=== PATIENT | male | born 1990 | race American Indian/Alaskan Native ===

== ENCOUNTER 2017-03-21 12:02 | Emergency (ER) | payer SELFPAY ==
[2017-03-21 12:47] VITALS: BP 129/79
[2017-03-21] MEDS ORDERED: TORADOL IM ONE (15:47)
--- NOTE | 2017-03-21 15:48 | Emergency Department Report ---
ED ENT HPI - General Chief complaint: Sore Throat Stated complaint: ASTHMA/CHEST PAIN/BODY PAIN Time Seen by Provider: 03/21/17 15:13 Source: patient Mode of arrival: Ambulatory Limitations: No Limitations - History of Present Illness Initial comments: This is a 26-year-old male nontoxic, well nourished in appearance, no acute signs of distress the present to the ED complaining of sore throat, body aches, and sinus congestion x3 days. Patient describes sore throat as swallowing razor blades. Patient denies any fever, chills, chest pain, short of breath, headache, stiff neck, nausea, vomiting. Patient denies any facial swelling. Patient denies any allergies. History of of migraine headaches, asthma. MD complaint: sore throat -: Gradual, days(s) (3) Severity: mild Severity scale (0 -10): 7 Quality: other (swallowing razor blades) Consistency: constant Improves with: none Worsens with: swallowing Associated Symptoms: pain with swallowing. denies: fever, cough, gum swelling, toothache, sore throat, tinnitus, hearing loss, discharge from ear, rhinorrhea - Related Data Previous Rx's Medication Instructions Recorded Last Taken Type Ondansetron [Zofran] 4 mg PO Q6HR PRN #10 tablet 12/01/13 Unknown Rx ALBUTEROL NEB's [Proventil 0.083% 2.5 mg IH Q4-6H PRN #1 box 11/30/14 Unknown Rx NEBS] Azithromycin [Zithromax Z-TAWANNA] 250 mg PO DAILY #6 tablet 11/30/14 Unknown Rx Benzonatate [Tessalon Perles] 200 mg PO Q8HR PRN #15 capsule 11/30/14 Unknown Rx Fluticasone [Flonase] 1 spray NS QDAY #1 bottle 11/30/14 Unknown Rx Prednisone [Prednisone 10 mg 10 mg PO .TAPER #1 tab.ds.pk 11/30/14 Unknown Rx (6-Day Pack, 21 Tabs)] Cyclobenzaprine [Flexeril] 10 mg PO TID PRN #15 tablet 01/30/16 Unknown Rx Ibuprofen [Motrin 800 MG tab] 800 mg PO Q8HR PRN #30 tablet 01/30/16 Unknown Rx Amoxicillin/K Clav Tab [Augmentin 1 tab PO Q12HR #20 tab 03/21/17 Unknown Rx 875 mg] Ibuprofen [Motrin 600 MG tab] 600 mg PO Q8H PRN #30 tablet 03/21/17 Unknown Rx Allergies Allergy/AdvReac Type Severity Reaction Status Date / Time No Known Allergies Allergy Verified 11/30/14 09:33 ED Dental HPI - General Chief complaint: Sore Throat Stated complaint: ASTHMA/CHEST PAIN/BODY PAIN Time Seen by Provider: 03/21/17 15:13 Source: patient Mode of arrival: Ambulatory Limitations: No Limitations - Related Data Previous Rx's Medication Instructions Recorded Last Taken Type Ondansetron [Zofran] 4 mg PO Q6HR PRN #10 tablet 12/01/13 Unknown Rx ALBUTEROL NEB's [Proventil 0.083% 2.5 mg IH Q4-6H PRN #1 box 11/30/14 Unknown Rx NEBS] Azithromycin [Zithromax Z-TAWANNA] 250 mg PO DAILY #6 tablet 11/30/14 Unknown Rx Benzonatate [Tessalon Perles] 200 mg PO Q8HR PRN #15 capsule 11/30/14 Unknown Rx Fluticasone [Flonase] 1 spray NS QDAY #1 bottle 11/30/14 Unknown Rx Prednisone [Prednisone 10 mg 10 mg PO .TAPER #1 tab.ds.pk 11/30/14 Unknown Rx (6-Day Pack, 21 Tabs)] Cyclobenzaprine [Flexeril] 10 mg PO TID PRN #15 tablet 01/30/16 Unknown Rx Ibuprofen [Motrin 800 MG tab] 800 mg PO Q8HR PRN #30 tablet 01/30/16 Unknown Rx Amoxicillin/K Clav Tab [Augmentin 1 tab PO Q12HR #20 tab 03/21/17 Unknown Rx 875 mg] Ibuprofen [Motrin 600 MG tab] 600 mg PO Q8H PRN #30 tablet 03/21/17 Unknown Rx Allergies Allergy/AdvReac Type Severity Reaction Status Date / Time No Known Allergies Allergy Verified 11/30/14 09:33 ED Review of Systems ROS: Stated complaint: ASTHMA/CHEST PAIN/BODY PAIN Other details as noted in HPI Constitutional: denies: chills, fever Eyes: denies: eye pain, eye discharge, vision change ENT: throat pain. denies: ear pain Respiratory: denies: cough, shortness of breath, wheezing Cardiovascular: denies: chest pain, palpitations Endocrine: no symptoms reported Gastrointestinal: denies: abdominal pain, nausea, diarrhea Genitourinary: denies: urgency, dysuria Musculoskeletal: denies: back pain, joint swelling, arthralgia Skin: denies: rash, lesions Neurological: denies: headache, weakness, paresthesias Psychiatric: denies: anxiety, depression Hematological/Lymphatic: denies: easy bleeding, easy bruising ED Past Medical Hx - Past Medical History Previous Medical History?: Yes Hx Headaches / Migraines: Yes Hx Asthma: Yes - Surgical History Past Surgical History?: No - Social History Smoking Status: Current Some Day Smoker Substance Use Type: Alcohol - Medications Home Medications: Home Medications Medication Instructions Recorded Confirmed Last Taken Type Ondansetron [Zofran] 4 mg PO Q6HR PRN #10 tablet 12/01/13 Unknown Rx ALBUTEROL NEB's [Proventil 0.083% 2.5 mg IH Q4-6H PRN #1 box 11/30/14 Unknown Rx NEBS] Azithromycin [Zithromax Z-TAWANNA] 250 mg PO DAILY #6 tablet 11/30/14 Unknown Rx Benzonatate [Tessalon Perles] 200 mg PO Q8HR PRN #15 capsule 11/30/14 Unknown Rx Fluticasone [Flonase] 1 spray NS QDAY #1 bottle 11/30/14 Unknown Rx Prednisone [Prednisone 10 mg 10 mg PO .TAPER #1 tab.ds.pk 11/30/14 Unknown Rx (6-Day Pack, 21 Tabs)] Cyclobenzaprine [Flexeril] 10 mg PO TID PRN #15 tablet 01/30/16 Unknown Rx Ibuprofen [Motrin 800 MG tab] 800 mg PO Q8HR PRN #30 tablet 01/30/16 Unknown Rx Amoxicillin/K Clav Tab [Augmentin 1 tab PO Q12HR #20 tab 03/21/17 Unknown Rx 875 mg] Ibuprofen [Motrin 600 MG tab] 600 mg PO Q8H PRN #30 tablet 03/21/17 Unknown Rx ED Physical Exam - General Limitations: No Limitations General appearance: alert, in no apparent distress - Head Head exam: Present: atraumatic, normocephalic, normal inspection - Eye Eye exam: Present: normal appearance, PERRL, EOMI. Absent: scleral icterus, conjunctival injection, nystagmus, periorbital swelling, periorbital tenderness Pupils: Present: normal accommodation - ENT ENT exam: Present: mucous membranes moist, TM's normal bilaterally, normal external ear exam - Expanded ENT Exam Expanded Ear exam: Present: normal external inspection Mouth exam: Present: normal external inspection, tongue normal. Absent: drooling, trismus, muffled voice, tongue elevation, laceration Teeth exam: Present: normal inspection Throat exam: Positive: normal inspection, tonsillar erythema, tonsillomegaly (2+ ), tonsillar exudate, other (Uvula midline). Negative: R peritonsillar mass, L peritonsillar mass - Neck Neck exam: Present: normal inspection, full ROM. Absent: tenderness, meningismus, lymphadenopathy, thyromegaly - Respiratory Respiratory exam: Present: normal lung sounds bilaterally. Absent: respiratory distress, wheezes, rales, rhonchi, stridor, chest wall tenderness, accessory muscle use, decreased breath sounds, prolonged expiratory - Cardiovascular Cardiovascular Exam: Present: regular rate, normal rhythm, normal heart sounds. Absent: bradycardia, tachycardia, irregular rhythm, systolic murmur, diastolic murmur, rubs, gallop - GI/Abdominal GI/Abdominal exam: Present: soft, normal bowel sounds. Absent: distended, tenderness, guarding, rebound, rigid, diminished bowel sounds - Rectal Rectal exam: Present: deferred - Extremities Exam Extremities exam: Present: normal inspection, full ROM, normal capillary refill. Absent: tenderness, pedal edema, joint swelling, calf tenderness - Back Exam Back exam: Present: normal inspection, full ROM. Absent: tenderness, CVA tenderness (R), CVA tenderness (L), muscle spasm, paraspinal tenderness, vertebral tenderness, rash noted - Neurological Exam Neurological exam: Present: alert, oriented X3, CN II-XII intact, normal gait, reflexes normal - Psychiatric Psychiatric exam: Present: normal affect, normal mood - Skin Skin exam: Present: warm, dry, intact, normal color. Absent: rash ED Course Vital Signs 03/21/17 12:44 Temperature 98.5 F Pulse Rate 110 H Respiratory 20 Rate Blood Pressure 129/79 O2 Sat by Pulse 99 Oximetry - Reevaluation(s) Reevaluation #1: 03/21/17 16:33 Patient is able to speak in full sentences with no signs of distress noted ED Medical Decision Making - Medical Decision Making ED course and medical decision 6 from male that presents with exudative tonsillitis 1- patient was examined myself. Patient received Toradol 60 mg IM due to sore throat 2- patient exam and symptoms consistent of tonsillar exudative and treated with Augmentin at discharge. 3- patient was instructed to follow up with her primary care doctor in 3-5 days or if symptoms such as difficulty swallowing, shortness of breath, chest pain, numbness, tingling, fever, chills return to emergency room as soon as possible. 4- At time time of discharge, the patient does not seem toxic or ill in appearance. No acute signs of distress noted. Patient agrees to discharge treatment plan of care. No further questions noted by the patient. Critical care attestation.: If time is entered above; I have spent that time in minutes in the direct care of this critically ill patient, excluding procedure time. ED Disposition Clinical Impression: Tonsillitis with exudate Disposition: TO HOME OR SELFCARE Is pt being admited?: No Does the pt Need Aspirin: No Condition: Stable Instructions: Tonsillitis (ED), Ibuprofen (By mouth), Amoxicillin/Clavulanate Potassium (By mouth) Additional Instructions: follow up with your primary care doctor in 3-5 days or if symptoms such as difficulty swallowing, shortness of breath, chest pain, numbness, tingling, fever, chills return to emergency room as soon as possible. Take full course of antibiotics that was prescribed a period Prescriptions: Amoxicillin/K Clav Tab [Augmentin 875 mg] 1 tab PO Q12HR #20 tab Ibuprofen [Motrin 600 MG tab] 600 mg PO Q8H PRN #30 tablet PRN Reason: Pain Referrals: PRIMARY CAREMD [Primary Care Provider] - 3-5 Days JANY KUMAR MD [Staff Physician] - 3-5 Days [facility] [Outside] - 3-5 Days [facility] [Outside] - 3-5 Days Forms: Work/School Release Form(ED)
== END 2017-03-21 17:20 | disposition home or self-care (01) ==
LOC: ED 12:02
DX: J03.90 Acute tonsillitis, unspecified (principal); G43.909 Migraine, unspecified, not intractable, without status migrainosus; J45.909 Unspecified asthma, uncomplicated; F17.200 Nicotine dependence, unspecified, uncomplicated
CPT/HCPCS: 96372; 99282; J1885

== ENCOUNTER 2017-09-08 10:15 | Emergency (ER) | payer SELFPAY ==
[2017-09-08 10:39] VITALS: BP 136/72
--- NOTE | 2017-09-08 16:31 | Emergency Department Report ---
Minor Respiratory - HPI Chief Complaint: Upper Respiratory Infection Stated Complaint: CP W/COLD & COUGH Time Seen by Provider: 09/08/17 15:25 Minor Respiratory: Yes Rhinorrhea, Yes Able to Tolerate Fluids, Yes Cough, Yes Shortness of Breath (SOB with exertion, Hx of asthma, using inhaler with good relief), No Sore Throat, No Ear Pain, No Sick Contacts, No Hemoptysis, No Chest Pain, No Fever Other History: This is a 26 y.o. male presents with congestion, body aches, SOB , & cough for 3 days. Taking motrin and robitussin, which took care of fever. History of asthma. He is using albuterol inhaler for SOB with improvement. Denies fever, weakness, N&V, and chest pain. ED Review of Systems ROS: Stated complaint: CP W/COLD & COUGH Other details as noted in HPI Constitutional: denies: chills, fever Eyes: denies: eye pain, eye discharge, vision change ENT: congestion, other (sinus pressure). denies: ear pain, throat pain, dental pain, hearing loss, epistaxis Respiratory: cough. denies: orthopnea, shortness of breath, SOB with exertion, SOB at rest, stridor, wheezing Cardiovascular: denies: chest pain, palpitations, dyspnea on exertion, orthopnea , edema, syncope, paroxysmal nocturnal dyspnea Gastrointestinal: denies: abdominal pain, nausea, diarrhea Neurological: denies: headache, weakness, paresthesias ED Past Medical Hx - Past Medical History Hx Headaches / Migraines: Yes Hx Asthma: Yes - Social History Smoking Status: Never Smoker Substance Use Type: None - Medications Home Medications: Home Medications Medication Instructions Recorded Confirmed Last Taken Type Ondansetron [Zofran] 4 mg PO Q6HR PRN #10 tablet 12/01/13 Unknown Rx ALBUTEROL NEB's [Proventil 0.083% 2.5 mg IH Q4-6H PRN #1 box 11/30/14 Unknown Rx NEBS] Azithromycin [Zithromax Z-TAWANNA] 250 mg PO DAILY #6 tablet 11/30/14 Unknown Rx Benzonatate [Tessalon Perles] 200 mg PO Q8HR PRN #15 capsule 11/30/14 Unknown Rx Fluticasone [Flonase] 1 spray NS QDAY #1 bottle 11/30/14 Unknown Rx Prednisone [Prednisone 10 mg 10 mg PO .TAPER #1 tab.ds.pk 11/30/14 Unknown Rx (6-Day Pack, 21 Tabs)] Cyclobenzaprine [Flexeril] 10 mg PO TID PRN #15 tablet 01/30/16 Unknown Rx Ibuprofen [Motrin 800 MG tab] 800 mg PO Q8HR PRN #30 tablet 01/30/16 Unknown Rx Amoxicillin/K Clav Tab [Augmentin 1 tab PO Q12HR #20 tab 03/21/17 Unknown Rx 875 mg] Ibuprofen [Motrin 600 MG tab] 600 mg PO Q8H PRN #30 tablet 03/21/17 Unknown Rx Amoxicillin/Potassium Clav 1 each PO BID 5 Days #10 tablet 09/08/17 Unknown Rx [Augmentin 875-125 Tablet] Benzonatate 200 mg PO TID PRN #30 capsule 09/08/17 Unknown Rx Fluticasone [Flonase] 1 spray NS QDAY #1 bottle 09/08/17 Unknown Rx Minor Respiratory Exam - Exam General: Vital signs noted. No distress. Alert and acting appropriately. HEENT: Yes Pharyngeal Erythema, Yes Moist Mucous Membranes, Yes Rhinorrhea, Yes Frontal Tenderness (bilaterally), No Pharyngeal Exudates, No Conjuctival Injection, No Maxillary Tenderness Ear: Neither TM Bulge, Neither TM Erythema, Neither EAC Pain, Neither EAC Discharge Neck: Yes Supple, No Adenopathy Lungs: Yes Good Air Exchange, Yes Ronchi, Yes Cough, No Wheezes, No Stridor, No Labored Respirations, No Retractions, No Use of Accessory Muscles, No Other Abnormal Lung Sounds Heart: Yes Regular, No Murmur Abdomen: Yes Normal Bowel Sounds, No Tenderness, No Peritoneal Signs Skin: No Rash, No Edema Neurologic: Alert and oriented, no deficits. Musculoskeletal: Unremarkable. ED Course Vital Signs 09/08/17 10:36 Temperature 98.3 F Pulse Rate 90 Respiratory 20 Rate Blood Pressure 136/72 O2 Sat by Pulse 100 Oximetry ED Medical Decision Making - Medical Decision Making This is a 26 y.o. female presents with congestion, body aches, SOB, & cough for 3 days. Taking motrin and robitussin, which took care of fever. History of asthma. He is using albuterol inhaler for SOB with improvement. Afebrile, VS WNL Sat 100% on RA Frontal Sinusitis: Started on augmentin, flonase, and benzonatate. F/U with PCP. Return to ER if fever, SOB, wheezing, chest pain, or symptoms are not improving. Critical care attestation.: If time is entered above; I have spent that time in minutes in the direct care of this critically ill patient, excluding procedure time. ED Disposition Clinical Impression: Sinusitis Qualifiers: Sinusitis location: frontal Chronicity: acute Recurrence: non-recurrent Qualified Code(s): J01.10 - Acute frontal sinusitis, unspecified Disposition: TO HOME OR SELFCARE Is pt being admited?: No Does the pt Need Aspirin: No Condition: Stable Instructions: Sinusitis (ED), Allergic Rhinitis (ED) Additional Instructions: Increase fluid intake. Use warm, moist compresses over sinuses. Take tylenol for fever. Follow up with Primary Care Provider if symptoms persist. Prescriptions: Amoxicillin/Potassium Clav [Augmentin 875-125 Tablet] 1 each PO BID 5 Days #10 tablet Benzonatate 200 mg PO TID PRN #30 capsule PRN Reason: Cough Fluticasone [Flonase] 1 spray NS QDAY #1 bottle Referrals: PRIMARY CARE, [Primary Care Provider] - 3-5 Days [facility] [Outside] - 3-5 Days [facility] [Outside] - 3-5 Days [facility] [Outside] - 3-5 Days Forms: Work/School Release Form(ED) Time of Disposition: 17:23 Print Language: SLOVENIAN
== END 2017-09-08 17:34 | disposition home or self-care (01) ==
LOC: ED 10:15
DX: J01.10 Acute frontal sinusitis, unspecified (principal); J45.909 Unspecified asthma, uncomplicated; G43.909 Migraine, unspecified, not intractable, without status migrainosus
CPT/HCPCS: 99282

== ENCOUNTER 2017-12-07 06:35 | Emergency (ER) | payer SELFPAY ==
--- NOTE | 2017-12-07 07:49 | Emergency Department Report ---
Minor Respiratory - HPI Chief Complaint: Upper Respiratory Infection Stated Complaint: COUGH/CHEST PAIN Time Seen by Provider: 12/07/17 07:43 Duration: 1 week Pain Location: Nose (congestion), Chest (tightness with cough) Severity: moderate Minor Respiratory: Yes Rhinorrhea, Yes Able to Tolerate Fluids, Yes Cough, Yes Chest Pain (tightness and sharp pain with cough), No Sore Throat, No Ear Pain, No Sick Contacts, No Hemoptysis, No Shortness of Breath, No Fever Other History: This is a 27 y.o. male with cough and chest tightness for 1 week that got worse over past 3 days. History of asthma. He took the last puff off albuterol this morning. He reports symptoms started 1 week ago when the pollen count increased, which triggered his asthma. He started using albuterol inhaler with improvement of symptoms but ran out of medication this morning. States he feel tightness to chest and sharp pain that stay in the center of chest with each cough. He is also having congestion with clear rhinorrhea. He currently don 't have a PCP for inhaler refills. Denies fever, nausea, vomiting, chest pain, body aches, and abdominal pain. ED Review of Systems ROS: Stated complaint: COUGH/CHEST PAIN Other details as noted in HPI Constitutional: denies: chills, fever Respiratory: cough, SOB with exertion. denies: SOB at rest, stridor, wheezing Cardiovascular: chest pain (chest tightness and sharp pain with cough). denies : palpitations, dyspnea on exertion, syncope Gastrointestinal: denies: abdominal pain, nausea, vomiting, diarrhea, hematochezia Musculoskeletal: denies: back pain, joint swelling, arthralgia, myalgia Neurological: denies: headache, weakness, numbness, paresthesias Psychiatric: denies: anxiety, depression ED Past Medical Hx - Past Medical History Previous Medical History?: Yes Hx Headaches / Migraines: Yes Hx Asthma: Yes - Surgical History Past Surgical History?: No - Social History Smoking Status: Current Some Day Smoker Substance Use Type: Alcohol, Marijuana - Medications Home Medications: Home Medications Medication Instructions Recorded Confirmed Last Taken Type Ondansetron [Zofran] 4 mg PO Q6HR PRN #10 tablet 12/01/13 Unknown Rx ALBUTEROL NEB's [Proventil 0.083% 2.5 mg IH Q4-6H PRN #1 box 11/30/14 Unknown Rx NEBS] Azithromycin [Zithromax Z-TAWANNA] 250 mg PO DAILY #6 tablet 11/30/14 Unknown Rx Benzonatate [Tessalon Perles] 200 mg PO Q8HR PRN #15 capsule 11/30/14 Unknown Rx Fluticasone [Flonase] 1 spray NS QDAY #1 bottle 11/30/14 Unknown Rx Prednisone [Prednisone 10 mg 10 mg PO .TAPER #1 tab.ds.pk 11/30/14 Unknown Rx (6-Day Pack, 21 Tabs)] Cyclobenzaprine [Flexeril] 10 mg PO TID PRN #15 tablet 01/30/16 Unknown Rx Ibuprofen [Motrin 800 MG tab] 800 mg PO Q8HR PRN #30 tablet 01/30/16 Unknown Rx Amoxicillin/K Clav Tab [Augmentin 1 tab PO Q12HR #20 tab 03/21/17 Unknown Rx 875 mg] Ibuprofen [Motrin 600 MG tab] 600 mg PO Q8H PRN #30 tablet 03/21/17 Unknown Rx Amoxicillin/Potassium Clav 1 each PO BID 5 Days #10 tablet 09/08/17 Unknown Rx [Augmentin 875-125 Tablet] Benzonatate 200 mg PO TID PRN #30 capsule 09/08/17 Unknown Rx Fluticasone [Flonase] 1 spray NS QDAY #1 bottle 09/08/17 Unknown Rx ALBUTEROL Inhaler [ProAir HFA 2 puff IH QID PRN #1 inhalation 12/07/17 Unknown Rx Inhaler] Benzonatate [Tessalon Perle] 100 mg PO TID PRN #30 capsule 12/07/17 Unknown Rx Cetirizine HCl [Zyrtec] 10 mg PO DAILY #30 tablet 12/07/17 Unknown Rx Fluticasone [Flonase] 1 spray NS QDAY #1 bottle 12/07/17 Unknown Rx predniSONE [Deltasone] 20 mg PO QDAY #6 tab 12/07/17 Unknown Rx Minor Respiratory Exam - Exam General: Vital signs noted. No distress. Alert and acting appropriately. HEENT: Yes Pharyngeal Erythema, Yes Moist Mucous Membranes, Yes Rhinorrhea ( turbinated congested with clear discharge), No Pharyngeal Exudates, No Conjuctival Injection, No Frontal Tenderness, No Maxillary Tenderness Ear: Neither TM Bulge, Neither TM Erythema, Neither EAC Pain, Neither EAC Discharge Neck: Yes Supple, No Adenopathy Lungs: Yes Good Air Exchange, Yes Ronchi, No Wheezes, No Stridor, No Cough, No Labored Respirations, No Retractions, No Use of Accessory Muscles, No Other Abnormal Lung Sounds Heart: Yes Regular, No Murmur Abdomen: Yes Normal Bowel Sounds, No Tenderness, No Peritoneal Signs Skin: No Rash, No Edema Neurologic: Alert and oriented, no deficits. Musculoskeletal: Unremarkable. ED Course Vital Signs 12/07/17 12/07/17 06:43 07:13 Temperature 98.8 F 98.8 F Pulse Rate 77 77 Respiratory 18 18 Rate Blood Pressure 120/63 120/63 O2 Sat by Pulse 97 97 Oximetry ED Medical Decision Making - Medical Decision Making 27 y.o. male that presents with congestion and chest tightness with cough for 1 week that got worse over past 3 days. History of Asthma. Noncompliant with medication. Currently doesn't have a PCP. He ran out of albuterol inhaler this morning. Patient examined by me and in slight distress. Vitals stable. Given duoneb treatment once and prednisone 60 mg po once in ER. Rhonchi resolved and sat 98% on room air. Asthma exacerbation, Start albuterol and prednisone taper. Discharged home stable. Encouraged to do supportive care for allergic rhinitis. Refilled albuterol inhaler, start flonase, benzonate, zyrtec, and prednisone 40 mg po daily x 3 days. Return to work tomorrow. Critical care attestation.: If time is entered above; I have spent that time in minutes in the direct care of this critically ill patient, excluding procedure time. ED Disposition Clinical Impression: Allergic rhinitis Qualifiers: Allergic rhinitis trigger: pollen Allergic rhinitis seasonality: seasonal Qualified Code(s): J30.1 - Allergic rhinitis due to pollen Asthma exacerbation Qualifiers: Asthma severity: mild Asthma persistence: intermittent Qualified Code(s): J45.21 - Mild intermittent asthma with (acute) exacerbation Disposition: - TO HOME OR SELFCARE Is pt being admited?: No Does the pt Need Aspirin: No Condition: Stable Instructions: Asthma (ED), Allergic Rhinitis (ED) Additional Instructions: It is important to use inhaler or have active albuterol inhaler and avoiding asthma triggers. Complete full course of prednisone steroids as prescribed. Follow up with Primary Care Provider in 24-72 hours. Prescriptions: ALBUTEROL Inhaler [ProAir HFA Inhaler] 2 puff IH QID PRN #1 inhalation PRN Reason: Shortness Of Breath Benzonatate [Tessalon Perle] 100 mg PO TID PRN #30 capsule PRN Reason: Cough Cetirizine HCl [Zyrtec] 10 mg PO DAILY #30 tablet Fluticasone [Flonase] 1 spray NS QDAY #1 bottle predniSONE [Deltasone] 20 mg PO QDAY #6 tab Referrals: [facility] [Outside] - 3-5 Days [facility] [Outside] - 3-5 Days [facility] [Outside] - 3-5 Days Forms: Work/School Release Form(ED) Time of Disposition: 08:52 Print Language: KINYARWANDA
[2017-12-07] MEDS ORDERED: DUONEB *Not for PRN Use IH ONE (07:55)
[2017-12-07] MEDS ORDERED: DELTASONE PO ONE (07:55)
[2017-12-07 09:16] VITALS: BP 169/98
== END 2017-12-07 09:18 | disposition home or self-care (01) ==
LOC: ED 06:35
DX: J30.9 Allergic rhinitis, unspecified (principal); J45.901 Unspecified asthma with (acute) exacerbation; F17.200 Nicotine dependence, unspecified, uncomplicated
CPT/HCPCS: 93005; 93010; 94640; 99283; J7512

== ENCOUNTER 2018-04-17 15:21 | Emergency (ER) | payer SELFPAY ==
[2018-04-17 15:34] VITALS: BP 124/78
--- NOTE | 2018-04-17 16:18 | Emergency Department Report ---
- General Chief complaint: Extremity Injury, Lower Stated complaint: LEG PAIN Time Seen by Provider: 04/17/18 16:03 Source: patient Mode of arrival: Ambulatory Limitations: No Limitations - History of Present Illness Initial comments: Patient reports that he bumped his toe to include 1st and third right toe on something and caught his toenail to come off. He said this happened about a week ago and then he started having redness to his right foot this radiated into his leg and up his thigh 3-4 days ago. Denies any fever or chills. Denies any numbness or tingling. Pain is 10/10 and achy. Worse with walking and better rest. Denies any chest pain or shortness of breath or any history of blood clots. MD complaint: rash, discoloration Onset/Timin -: days(s) Tetanus Up to Date: yes Location: R foot Severity: severe Severity scale (0 -10): 10 Quality: aching, other Consistency: intermittent Improves with: rest Worsens with: movement Context: other (Injury) Associated symptoms: athralgias Treatments Prior to Arrival: none - Related Data Previous Rx's Medication Instructions Recorded Last Taken Type Ondansetron [Zofran] 4 mg PO Q6HR PRN #10 tablet 12/01/13 Unknown Rx ALBUTEROL NEB's [Proventil 0.083% 2.5 mg IH Q4-6H PRN #1 box 11/30/14 Unknown Rx NEBS] Azithromycin [Zithromax Z-TAWANNA] 250 mg PO DAILY #6 tablet 11/30/14 Unknown Rx Benzonatate [Tessalon Perles] 200 mg PO Q8HR PRN #15 capsule 11/30/14 Unknown Rx Fluticasone [Flonase] 1 spray NS QDAY #1 bottle 11/30/14 Unknown Rx Prednisone [Prednisone 10 mg 10 mg PO .TAPER #1 tab.ds.pk 11/30/14 Unknown Rx (6-Day Pack, 21 Tabs)] Cyclobenzaprine [Flexeril] 10 mg PO TID PRN #15 tablet 01/30/16 Unknown Rx Amoxicillin/K Clav Tab [Augmentin 1 tab PO Q12HR #20 tab 03/21/17 Unknown Rx 875 mg] Ibuprofen [Motrin 600 MG tab] 600 mg PO Q8H PRN #30 tablet 03/21/17 Unknown Rx Amoxicillin/Potassium Clav 1 each PO BID 5 Days #10 tablet 09/08/17 Unknown Rx [Augmentin 875-125 Tablet] Benzonatate 200 mg PO TID PRN #30 capsule 09/08/17 Unknown Rx Fluticasone [Flonase] 1 spray NS QDAY #1 bottle 09/08/17 Unknown Rx ALBUTEROL Inhaler [ProAir HFA 2 puff IH QID PRN #1 inhalation 12/07/17 Unknown Rx Inhaler] Benzonatate [Tessalon Perle] 100 mg PO TID PRN #30 capsule 12/07/17 Unknown Rx Cetirizine HCl [Zyrtec] 10 mg PO DAILY #30 tablet 12/07/17 Unknown Rx Fluticasone [Flonase] 1 spray NS QDAY #1 bottle 12/07/17 Unknown Rx predniSONE [Deltasone] 20 mg PO QDAY #6 tab 12/07/17 Unknown Rx Ibuprofen [Motrin 800 MG tab] 800 mg PO Q8HR PRN #30 tablet 04/17/18 Unknown Rx cephALEXin [Keflex] 500 mg PO Q8HR 10 Days #30 cap 04/17/18 Unknown Rx Allergies Allergy/AdvReac Type Severity Reaction Status Date / Time No Known Allergies Allergy Verified 04/17/18 15:34 Abscess Boil HPI - HPI Chief Complaint: Extremity Injury, Lower Stated Complaint: LEG PAIN Time Seen by Provider: 04/17/18 16:03 Home Medications: Previous Rx's Medication Instructions Recorded Last Taken Type Ondansetron [Zofran] 4 mg PO Q6HR PRN #10 tablet 12/01/13 Unknown Rx ALBUTEROL NEB's [Proventil 0.083% 2.5 mg IH Q4-6H PRN #1 box 11/30/14 Unknown Rx NEBS] Azithromycin [Zithromax Z-TAWANNA] 250 mg PO DAILY #6 tablet 11/30/14 Unknown Rx Benzonatate [Tessalon Perles] 200 mg PO Q8HR PRN #15 capsule 11/30/14 Unknown Rx Fluticasone [Flonase] 1 spray NS QDAY #1 bottle 11/30/14 Unknown Rx Prednisone [Prednisone 10 mg 10 mg PO .TAPER #1 tab.ds.pk 11/30/14 Unknown Rx (6-Day Pack, 21 Tabs)] Cyclobenzaprine [Flexeril] 10 mg PO TID PRN #15 tablet 01/30/16 Unknown Rx Amoxicillin/K Clav Tab [Augmentin 1 tab PO Q12HR #20 tab 03/21/17 Unknown Rx 875 mg] Ibuprofen [Motrin 600 MG tab] 600 mg PO Q8H PRN #30 tablet 03/21/17 Unknown Rx Amoxicillin/Potassium Clav 1 each PO BID 5 Days #10 tablet 09/08/17 Unknown Rx [Augmentin 875-125 Tablet] Benzonatate 200 mg PO TID PRN #30 capsule 09/08/17 Unknown Rx Fluticasone [Flonase] 1 spray NS QDAY #1 bottle 09/08/17 Unknown Rx ALBUTEROL Inhaler [ProAir HFA 2 puff IH QID PRN #1 inhalation 12/07/17 Unknown Rx Inhaler] Benzonatate [Tessalon Perle] 100 mg PO TID PRN #30 capsule 12/07/17 Unknown Rx Cetirizine HCl [Zyrtec] 10 mg PO DAILY #30 tablet 12/07/17 Unknown Rx Fluticasone [Flonase] 1 spray NS QDAY #1 bottle 12/07/17 Unknown Rx predniSONE [Deltasone] 20 mg PO QDAY #6 tab 12/07/17 Unknown Rx Ibuprofen [Motrin 800 MG tab] 800 mg PO Q8HR PRN #30 tablet 04/17/18 Unknown Rx cephALEXin [Keflex] 500 mg PO Q8HR 10 Days #30 cap 04/17/18 Unknown Rx Allergies/Adverse Reactions: Allergies Allergy/AdvReac Type Severity Reaction Status Date / Time No Known Allergies Allergy Verified 04/17/18 15:34 ED Review of Systems ROS: Stated complaint: LEG PAIN Other details as noted in HPI Comment: All other systems reviewed and negative Constitutional: denies: chills, fever Cardiovascular: denies: chest pain, palpitations, edema, syncope Gastrointestinal: denies: nausea, vomiting Musculoskeletal: arthralgia. denies: back pain, joint swelling, myalgia Skin: change in color. denies: rash Neurological: denies: headache, weakness, numbness, paresthesias, abnormal gait ED Past Medical Hx - Past Medical History Previous Medical History?: Yes Hx Headaches / Migraines: Yes Hx Asthma: Yes - Surgical History Past Surgical History?: No - Family History Family history: hypertension - Social History Smoking Status: Never Smoker Substance Use Type: None - Medications Home Medications: Home Medications Medication Instructions Recorded Confirmed Last Taken Type Ondansetron [Zofran] 4 mg PO Q6HR PRN #10 tablet 12/01/13 Unknown Rx ALBUTEROL NEB's [Proventil 0.083% 2.5 mg IH Q4-6H PRN #1 box 11/30/14 Unknown Rx NEBS] Azithromycin [Zithromax Z-TAWANNA] 250 mg PO DAILY #6 tablet 11/30/14 Unknown Rx Benzonatate [Tessalon Perles] 200 mg PO Q8HR PRN #15 capsule 11/30/14 Unknown Rx Fluticasone [Flonase] 1 spray NS QDAY #1 bottle 11/30/14 Unknown Rx Prednisone [Prednisone 10 mg 10 mg PO .TAPER #1 tab.ds.pk 11/30/14 Unknown Rx (6-Day Pack, 21 Tabs)] Cyclobenzaprine [Flexeril] 10 mg PO TID PRN #15 tablet 01/30/16 Unknown Rx Amoxicillin/K Clav Tab [Augmentin 1 tab PO Q12HR #20 tab 03/21/17 Unknown Rx 875 mg] Ibuprofen [Motrin 600 MG tab] 600 mg PO Q8H PRN #30 tablet 03/21/17 Unknown Rx Amoxicillin/Potassium Clav 1 each PO BID 5 Days #10 tablet 09/08/17 Unknown Rx [Augmentin 875-125 Tablet] Benzonatate 200 mg PO TID PRN #30 capsule 09/08/17 Unknown Rx Fluticasone [Flonase] 1 spray NS QDAY #1 bottle 09/08/17 Unknown Rx ALBUTEROL Inhaler [ProAir HFA 2 puff IH QID PRN #1 inhalation 12/07/17 Unknown Rx Inhaler] Benzonatate [Tessalon Perle] 100 mg PO TID PRN #30 capsule 12/07/17 Unknown Rx Cetirizine HCl [Zyrtec] 10 mg PO DAILY #30 tablet 12/07/17 Unknown Rx Fluticasone [Flonase] 1 spray NS QDAY #1 bottle 12/07/17 Unknown Rx predniSONE [Deltasone] 20 mg PO QDAY #6 tab 12/07/17 Unknown Rx Ibuprofen [Motrin 800 MG tab] 800 mg PO Q8HR PRN #30 tablet 04/17/18 Unknown Rx cephALEXin [Keflex] 500 mg PO Q8HR 10 Days #30 cap 04/17/18 Unknown Rx ED Physical Exam - General Limitations: No Limitations General appearance: alert, in no apparent distress - Head Head exam: Present: atraumatic, normocephalic, normal inspection - Eye Eye exam: Present: normal appearance, PERRL, EOMI Pupils: Present: normal accommodation - ENT ENT exam: Present: normal exam, normal orophraynx, mucous membranes moist - Neck Neck exam: Present: normal inspection, full ROM. Absent: tenderness, lymphadenopathy - Respiratory Respiratory exam: Present: normal lung sounds bilaterally. Absent: respiratory distress, chest wall tenderness - Cardiovascular Cardiovascular Exam: Present: regular rate, normal rhythm, normal heart sounds. Absent: systolic murmur, diastolic murmur - Extremities Exam Extremities exam: Present: normal inspection, full ROM, normal capillary refill , other (No cce. + 2 pulses in all extremities, no neurovascular compromise except patient with redness and minimal swelling to right dorsum of the foot, distally and some streaking going up to his right knee in her lateral. No open wounds.). Absent: tenderness, pedal edema, joint swelling, calf tenderness - Neurological Exam Neurological exam: Present: alert, oriented X3, normal gait, reflexes normal. Absent: motor sensory deficit - Psychiatric Psychiatric exam: Present: normal affect, normal mood - Skin Skin exam: Present: warm, dry, intact, rash, erythema - Expanded Skin Exam Expanded Type of lesion: Present: rash Distribution of rash: RLE Description of rash: Present: tenderness, erythematous (patient with mild erythema to the distal right foot, dorsum. Mild swelling with tenderness to palpate. Some streaking noted proximally to right knee in her lateral), swelling. Absent: blisters, petechial, purpuic, discharge, fluctuant, indurated ED Course Vital Signs 04/17/18 15:31 Temperature 98.3 F Pulse Rate 89 Respiratory 17 Rate Blood Pressure 124/78 O2 Sat by Pulse 99 Oximetry - Reevaluation(s) Reevaluation #1: 04/17/18 16:49 Given Keflex 500 mg when necessary emergency room, Motrin 800 mg by mouth and 0.5 mL to update tetanus. ED Medical Decision Making - Medical Decision Making This is a 27-year-old male here report that he injured his first and third toe on the right foot and now is having swelling and redness to his right foot and redness going up his right forearm radiation of pain proximally. He is here to be evaluated Patient was seen and examined and physical finding for redness and minimal swelling to the dorsum of foot with minimal streaking in the lateral proximally to right knee. Warm to touch at left foot. No limitation in range of motion. Minimal limping with walking ,other physical findings are normal. I discussed the patient diagnosis and treatment plan and voiced understanding. Patient started on Keflex to treat cellulitis and Motrin for pain and inflammation of the right lower extremity. Patient discharged with condition referral to [facility] as he does not have a primary care physician follow-up in 2-3 days and if condition worsens before then to return to the emergency room. He agrees with discharge information and discharged home in stable condition, vital signs stable afebrile with prescription for Motrin and Keflex. Critical care attestation.: If time is entered above; I have spent that time in minutes in the direct care of this critically ill patient, excluding procedure time. ED Disposition Clinical Impression: Cellulitis of right lower extremity, Arthralgia of right foot Disposition: DC-01 TO HOME OR SELFCARE Is pt being admited?: No Does the pt Need Aspirin: No Condition: Stable Instructions: Cellulitis (ED), Arthralgia (ED) Additional Instructions: Please see medication as prescribed Follow-up with her primary care physician in 2-3 days and if he do not have a primary care physician return to emergency room or go to [facility]. If Symptoms worsens. Return to the emergency room ANGELA. Take antibiotic for infection and Motrin for pain Prescriptions: cephALEXin [Keflex] 500 mg PO Q8HR 10 Days #30 cap Ibuprofen [Motrin 800 MG tab] 800 mg PO Q8HR PRN #30 tablet PRN Reason: Pain Referrals: [facility] [Outside] - 2-3 Days PRIMARY CARE, [Primary Care Provider] - 2-3 Days Forms: Work/School Release Form(ED)
[2018-04-17] MEDS ORDERED: MOTRIN PO ONE (16:21)
[2018-04-17] MEDS ORDERED: KEFLEX PO ONE (16:21)
[2018-04-17] MEDS ORDERED: BOOSTRIX IM ONE (16:32)
== END 2018-04-17 17:20 | disposition home or self-care (01) ==
LOC: ED 15:21
DX: M79.671 Pain in right foot (principal); L03.115 Cellulitis of right lower limb; G43.909 Migraine, unspecified, not intractable, without status migrainosus; J45.909 Unspecified asthma, uncomplicated
CPT/HCPCS: 90471; 90715; 99282

== ENCOUNTER 2021-08-04 20:24 | Emergency (ER) | payer SELFPAY ==
[2021-08-04 20:31] VITALS: BP 156/91
[2021-08-04] MEDS ORDERED: IBUPROFEN 800 MG TAB PO ONE (21:03)
[2021-08-04] MEDS ORDERED: ACETAMINOPHEN W/CODEINE 300-30 MG TAB PO ONE (21:13)
--- NOTE | 2021-08-04 21:28 | XRay Report ---
CHEST 2 VIEWS INDICATION / CLINICAL INFORMATION: trauma. COMPARISON: 03/20/2011 FINDINGS: SUPPORT DEVICES: None. HEART / MEDIASTINUM: No significant abnormality. LUNGS / PLEURA: No significant pulmonary or pleural abnormality. No pneumothorax. ADDITIONAL FINDINGS: No significant additional findings. IMPRESSION: 1. No acute findings. Signer Name: Timmy Vazquez MD Signed: 08/04/2021 9:24 PM Workstation Name: [id number]
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
== END 2021-08-04 23:33 | disposition home or self-care (01) ==
LOC: ED 20:24
DX: S01.81XA Laceration without foreign body of other part of head, initial encounter (principal); S20.219A Contusion of unspecified front wall of thorax, initial encounter; S30.1XXA Contusion of abdominal wall, initial encounter; G43.909 Migraine, unspecified, not intractable, without status migrainosus; J45.909 Unspecified asthma, uncomplicated; Y08.89XA Assault by other specified means, initial encounter; Y93.89 Activity, other specified; Y92.89 Other specified places as the place of occurrence of the external cause; Y99.8 Other external cause status; Z79.899 Other long term (current) drug therapy
CPT/HCPCS: 71046; 99283

== ENCOUNTER 2021-10-30 05:21 | Inpatient (IN) | payer OTHER ==
[2021-10-30] MEDS ORDERED: SODIUM CHLORIDE 0.9% 1000 ML 1,000 ML IV ONE ×2 (05:29→06:17)
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
[2021-10-30 05:58] LABS: Basophils # (Auto) 0.1 K/mm3 (0.0-0.1); Basophils % (Auto) 0.8 % (0.0-1.8); Eosinophils % (Auto) 0.2 % (0.0-4.3); Hematocrit 39.8 % (35.5-45.6); Hemoglobin 13.8 gm/dl (11.8-15.2); Lymphocytes # (Auto) 1.2 K/mm3 (1.2-5.4); Lymphocytes % (Auto) 14.7 % (13.4-35.0); Mean Corpuscular HGB Conc 35 % (32-34); Mean Corpuscular Volume 92 fl (84-94); Monocytes # (Auto) 0.4 K/mm3 (0.0-0.8); Monocytes % (Auto) 5.7 % (0.0-7.3); Platelet Count 232 K/mm3 (140-440); Red Blood Count 4.35 M/mm3 (3.65-5.03); Red Cell Distribution Width 13.2 % (13.2-15.2)
[2021-10-30 06:16] LABS: Alanine Aminotransferase 59 units/L (7-56); Albumin 4.6 g/dL (3.9-5); BUN/Creatinine Ratio 8; Blood Urea Nitrogen 6 mg/dL (9-20); Calcium 9.4 mg/dL (8.4-10.2); Hemolysis Index 56
--- NOTE | 2021-10-30 06:34 | XRay Report ---
CHEST 1 VIEW INDICATION: overdose. COMPARISON: 08/04/2021 FINDINGS: Support devices: None. Heart: Normal. Lungs/Pleura: No acute pulmonary or pleural findings. There are low lung volumes. IMPRESSION: 1. No acute findings. Signer Name: Ceasar Tirado MD Signed: 10/30/2021 6:29 AM Workstation Name: [id number]
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
[2021-10-30 07:35] LABS: Partial Thromboplastin Time 23.5 Sec. (24.2-36.6)
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
[2021-10-30] MEDS: POTASSIUM CHLORIDE 10 MEQ 10 MEQ/100 ML BAG IV SCH ×4 (08:44→13:30)
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
[2021-10-30] MEDS ORDERED: MORPHINE 2 MG/1 ML INJ IV PRN (10:30)
[2021-10-30] MEDS ORDERED: ONDANSETRON 4 MG/2 ML INJ IV PRN (10:30)
[2021-10-30] MEDS ORDERED: NALOXONE 0.4 MG/1 ML INJ IV PRN (10:30)
[2021-10-30] MEDS ORDERED: MORPHINE 4 MG/1 ML INJ IV PRN (10:30)
[2021-10-30 11:00] LABS: Bilirubin,Urine NEG (Negative); Blood,Urine NEG (Negative); Color,Urine Amber (Yellow); Mucus,Urine 3+ /HPF
[2021-10-30 11:02] LABS: Cocaine Screen,Urine Negative; Methadone Screen,Urine Negative; Opiate Screen,Urine Negative
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
[2021-10-30 11:28] LABS: Amphetamine Screen,Urine Positive; Benzodiazepines Screen,Urine Positive; Cannabinoid Screen,Urine Positive
[2021-10-30] MEDS: QUEtiapine 25 MG TAB PO SCH ×2 (14:38→22:44)
[2021-10-30] MEDS: FLUoxetine 10 MG TAB PO SCH (14:38)
[2021-10-30] MEDS ORDERED: HALOPERIDOL LACTATE 5 MG/1 ML INJ IV PRN (15:52)
[2021-10-30] MEDS ORDERED: LORazepam 2 MG/ML VIAL IV PRN ×2 (15:52)
[2021-10-30] MEDS ORDERED: LORazepam 2 MG TAB PO PRN (15:52)
--- NOTE | 2021-10-30 17:39 | Electrocardiograph Report ---
[facility] Test Date: 2021-10-30 Test Time: 05:35:00 Pat Name: BINU CULVER Department: Room: [facility] Gender: M Game Technician: KATHIE Diaz : 1990 Requested By: LISBET CURRIE Order Number: [id number] Reading MD: Shiela Felipe Measurements Intervals [place] Rate: 135 P: 51 MS: 145 QRS: 31 QRSD: 95 T: 26 QT: 294 QTc: 441 Interpretive Statements Sinus tachycardia Probable left atrial enlargement No previous ECG available for comparison Electronically Signed On 10-30-2021 17:38:59 EST by Shiela Felipe
--- NOTE | 2021-10-30 17:39 | Electrocardiograph Report ---
[facility] Test Date: 2021-10-30 Test Time: 06:27:26 Pat Name: BINU CULVER Department: Room: [facility] Gender: M Disability Specialist: ROSEANNA : 1990 Requested By: FILI GARZON Order Number: [id number] Reading MD: Shiela Felipe Measurements Intervals [place] Rate: 105 P: 10 [place]: 161 QRS: 7 QRSD: 91 T: 14 QT: 334 QTc: 443 Interpretive Statements Sinus tachycardia Compared to ECG 10/30/2021 05:35:00 Sinus rate has decreased by 30 bpm Electronically Signed On 10-30-2021 17:39:19 EST by Shiela Felipe
[2021-10-30] MEDS: ACETAMINOPHEN 325 MG TAB PO PRN (22:44)
[2021-10-30] MEDS: DOXEPIN 10 MG CAP PO SCH (23:11)
[2021-10-31 06:39] LABS: Blood Urea Nitrogen 6 mg/dL (9-20); Calcium 9.3 mg/dL (8.4-10.2); Hemolysis Index 10
[2021-10-31 07:05] LABS: BUN/Creatinine Ratio 9
[2021-10-31] MEDS: QUEtiapine 25 MG TAB PO SCH ×2 (09:42→21:39)
[2021-10-31] MEDS: FLUoxetine 10 MG TAB PO SCH (09:42)
--- NOTE | 2021-10-31 16:05 | Progress Note ---
Assessment and Plan #Suicide attempt #Toxic ingestion of Flexeril -Initial EKGs with QTC less than 450; should QTC prolongs, bicarb drip to be initiated per poison control guidelines -avoid haldol & geodon for agitation -if widened QT interval keep K>4, Ca >9 and Mg >2 -IV fluids started -Telemetry w/o any arrythmia, will downgrade to medsurge -Psychiatry consulted, 1013 ordered #MDD, psych following, need inpt psych placement #Acute toxic metabolic encephalopathy, improved -CT head negative -Likely secondary to sleep deprivation versus toxic ingestion #Volume depletion -IVF as above #Alcohol dependence #Prescription drug abuse -UDS positive for benzos and methamphetamine -CIWA precautions Advance Directives: No VTE prophylaxis?: Chemical Plan of care discussed with patient/family: Yes -- will downgrade the patient to medsurge Subjective Date of service: 10/31/21 Interval history: Patient seen and examined no acute event o/n sitter at the bedside tolerating diet Objective - Constitutional Vitals: Vital Signs - 12hr 10/31/21 10/31/21 10/31/21 04:22 08:00 08:12 Temperature 98.5 F 98.6 F Pulse Rate 83 91 H 86 Pulse Rate [ Radial] Respiratory 16 18 Rate Blood Pressure 141/94 125/87 O2 Sat by Pulse 99 99 Oximetry 10/31/21 10/31/21 11:00 12:21 Temperature 97.8 F Pulse Rate 107 H Pulse Rate [ 91 H Radial] Respiratory 18 18 Rate Blood Pressure 157/98 O2 Sat by Pulse 98 96 Oximetry General appearance: Present: no acute distress, well-nourished - EENT Eyes: PERRL, EOM intact ENT: hearing intact, clear oral mucosa Ears: bilateral: normal - Neck Neck: supple, normal ROM - Respiratory Respiratory effort: normal Respiratory: bilateral: CTA - Cardiovascular Rhythm: regular Heart Sounds: Present: S1 & S2. Absent: gallop, rub Extremities: pulses intact, No edema, normal color, Full ROM - Gastrointestinal General gastrointestinal: Present: soft, non-tender, non-distended, normal bowel sounds - Integumentary Integumentary: clear, warm, dry - Musculoskeletal Musculoskeletal: 1, strength equal bilaterally - Neurologic Neurologic: moves all extremities - Psychiatric Psychiatric: depressed - Labs CBC & Chem 7: 10/30/21 05:36 10/31/21 05:33 Labs: Abnormal lab results 10/31/21 Range/Units 05:33 Carbon Dioxide 21 L (22-30) mmol/L BUN 6 L (9-20) mg/dL Creatinine 0.7 L (0.8-1.3) mg/dL HEART Score - HEART Score Troponin: Troponin T < 0.010 ng/mL (0.00-0.029) 10/30/21 06:51
[2021-10-31] MEDS: ACETAMINOPHEN 325 MG TAB PO PRN (21:39)
[2021-10-31] MEDS: DOXEPIN 10 MG CAP PO SCH (21:40)
[2021-11-01] MEDS: FLUoxetine 10 MG TAB PO SCH (09:02)
[2021-11-01] MEDS: QUEtiapine 25 MG TAB PO SCH ×2 (09:02→21:23)
--- NOTE | 2021-11-01 11:10 | Progress Note ---
Subjective - Reason for Consult Consult date: 11/01/21 Reason for consult: suicidal attempt - Chief Complaint Chief complaint: The patient was seen today. He verbalizes being depressed and stressed about life. He says he's hearing voices but unable to tell me what they are saying because "he blocks them out." He says "the voices are confused." When asking about suicidal thoughts, the patient denies. He says "I don't know why I would try to kill myself. I wouldn't do that." When asking why did he take the pills, he replies "I guess I was stressed about life." REVIEW OF SYSTEMS Unable to assess MENTAL STATUS EXAMINATION Unable to assess Assessment and Plan (1) Major Depressive Disorder, Severe, with Psychotic Features Treatment Plan 1013 Increase Seroquel 50mg po BID Increase Prozac 20mg po daily Doxepin 10mg po qhs Medical: per primary Disposition: Recommend acute psychiatric inpatient treatment Will follow. Thanks Case staffed with Dr. Castillo Mental Status Exam - Vital signs Last Vital Signs Temp 98.9 F 11/01/21 05:30 Pulse 80 11/01/21 05:30 Resp 16 11/01/21 05:30 BP 141/86 11/01/21 05:30 Pulse Ox 97 11/01/21 08:58
--- NOTE | 2021-11-01 11:50 | Electrocardiograph Report ---
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
--- NOTE | 2021-11-01 11:51 | Electrocardiograph Report ---
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
[2021-11-01] MEDS: DOXEPIN 10 MG CAP PO SCH (21:23)
[2021-11-02] MEDS: QUEtiapine 25 MG TAB PO SCH ×2 (09:08→22:17)
[2021-11-02] MEDS: FLUoxetine 20 MG CAP PO SCH (09:08)
[2021-11-02] MEDS: DOXEPIN 10 MG CAP PO SCH (22:16)
[2021-11-03] MEDS: QUEtiapine 25 MG TAB PO SCH (11:01)
[2021-11-03] MEDS: FLUoxetine 20 MG CAP PO SCH (11:01)
[2021-11-03 11:10] VITALS: BP 125/79
--- NOTE | 2021-11-03 11:44 | Progress Note ---
Subjective - Reason for Consult Consult date: 11/03/21 Reason for consult: SI - Chief Complaint Chief complaint: The patient was seen today. He reports doing well. The patient reports sleep and appetite as good. He denies any current suicidal/homicidal ideation and denies hallucinations. The patient is focused on discharge. REVIEW OF SYSTEMS Unable to assess MENTAL STATUS EXAMINATION Unable to assess Assessment and Plan (1) Major Depressive Disorder, Severe, with Psychotic Features Treatment Plan [id number] Continue Seroquel 50mg po BID Continue Prozac 20mg po daily Continue Doxepin 10mg po qhs Medical: per primary Disposition: Do not recommend acute psychiatric inpatient treatment. Agriculture Professor will provide patient with safety plan and psychiatric out patient resources. Will sign off. Thanks Case staffed with Dr. Castillo Mental Status Exam - Vital signs Last Vital Signs Temp 97.6 F 11/03/21 11:10 Pulse 99 H 11/03/21 11:10 Resp 14 11/03/21 11:10 BP 125/79 11/03/21 11:10 Pulse Ox 100 11/03/21 11:10
--- NOTE | 2021-11-03 12:25 | Progress Note ---
Assessment and Plan Assessment and plan: #Suicide attempt #Toxic ingestion of Flexeril -Initial EKGs with QTC less than 450; should QTC prolongs, bicarb drip to be initiated per poison control guidelines -avoid haldol & geodon for agitation -if widened QT interval keep K>4, Ca >9 and Mg >2 -Discontinue IV fluids -Psychiatry consulted, 1013 ordered #Major depressive disorder Psychiatry/mental health consulted; appreciate recs Mental health recommending acute inpatient psych hospitalization #Acute toxic metabolic encephalopathyresolved -CT head negative -Likely secondary to sleep deprivation versus toxic ingestion #Volume depletionresolved -IVF as above #Alcohol dependence #Prescription drug abuse -UDS positive for benzos and methamphetamine -Continue CIWA precautions #Obesity #Weight loss counseling #Exercise counseling - BMI 35.7 - Counseled patient on the importance of weight loss, incorporating exercise, and dietary changes (lean meats, fresh fruits and vegetables, and water intake). Patient expresses understanding. - Time: +10 min #Advanced care planning -Disease education conducted, care plan discussed, diagnoses discussed, prognosis discussed, and patient acknowledges understanding with care plan -Time: +30 min #Discharge planning - Patient is pending discontinuation of 1013 versus acute inpatient psychiatric hospitalization - Case management has been made aware. Disposition Plan: Pending inpatient psychiatric dispo Total Time Spent with Patient (Minutes): 30 minutes History Interval history: No acute events overnight. Hospitalist Physical - Constitutional Vitals: Temp Pulse Resp BP Pulse Ox 97.6 F 99 H 14 125/79 100 11/03/21 11:10 11/03/21 11:10 11/03/21 11:10 11/03/21 11:10 11/03/21 11:10 General appearance: Present: no acute distress, well-nourished, obese - EENT Eyes: Present: PERRL, EOM intact ENT: hearing intact, clear oral mucosa, dentition normal - Neck Neck: Present: supple, normal ROM - Respiratory Respiratory effort: normal Respiratory: bilateral: CTA - Cardiovascular Rhythm: regular Heart Sounds: Present: S1 & S2 - Extremities Extremities: no ischemia, pulses intact, pulses symmetrical, No edema, normal temperature, normal color, Full ROM Peripheral Pulses: within normal limits - Abdominal General gastrointestinal: soft, non-tender, non-distended, normal bowel sounds - Integumentary Integumentary: Present: clear, warm, dry - Psychiatric Psychiatric: appropriate mood/affect, cooperative - Neurologic Neurologic: CNII-XII intact, moves all extremities - Allied Health Allied health notes reviewed: nursing HEART Score - HEART Score Troponin: Troponin T < 0.010 ng/mL (0.00-0.029) 10/30/21 06:51 Results - Labs CBC & Chem 7: 10/30/21 05:36 10/31/21 05:33 Labs: Laboratory Last Values WBC 7.8 K/mm3 (4.5-11.0) 10/30/21 05:36 RBC 4.35 M/mm3 (3.65-5.03) 10/30/21 05:36 Hgb 13.8 gm/dl (11.8-15.2) 10/30/21 05:36 Hct 39.8 % (35.5-45.6) 10/30/21 05:36 MCV 92 fl (84-94) 10/30/21 05:36 MCH 32 pg (28-32) 10/30/21 05:36 MCHC 35 % (32-34) H 10/30/21 05:36 RDW 13.2 % (13.2-15.2) 10/30/21 05:36 Plt Count 232 K/mm3 (140-440) 10/30/21 05:36 Lymph % (Auto) 14.7 % (13.4-35.0) 10/30/21 05:36 [place] % (Auto) 5.7 % (0.0-7.3) 10/30/21 05:36 Eos % (Auto) 0.2 % (0.0-4.3) 10/30/21 05:36 Baso % (Auto) 0.8 % (0.0-1.8) 10/30/21 05:36 Lymph # (Auto) 1.2 K/mm3 (1.2-5.4) 10/30/21 05:36 [place] # (Auto) 0.4 K/mm3 (0.0-0.8) 10/30/21 05:36 Eos # (Auto) 0.0 K/mm3 (0.0-0.4) 10/30/21 05:36 Baso # (Auto) 0.1 K/mm3 (0.0-0.1) 10/30/21 05:36 Seg Neutrophils % 78.6 % (40.0-70.0) H 10/30/21 05:36 Seg Neutrophils # 6.2 K/mm3 (1.8-7.7) 10/30/21 05:36 PT 14.3 Sec. (12.2-14.9) 10/30/21 06:51 INR 1.00 (0.87-1.13) 10/30/21 06:51 APTT 23.5 Sec. (24.2-36.6) L 10/30/21 06:51 VBG pH 7.343 (7.320-7.420) 10/30/21 06:51 Sodium 139 mmol/L (137-145) 10/31/21 05:33 Potassium 3.6 mmol/L (3.6-5.0) 10/31/21 05:33 Chloride 106.3 mmol/L (98-107) 10/31/21 05:33 Carbon Dioxide 21 mmol/L (22-30) L 10/31/21 05:33 Anion Gap 15 mmol/L 10/31/21 05:33 BUN 6 mg/dL (9-20) L 10/31/21 05:33 Creatinine 0.7 mg/dL (0.8-1.3) L 10/31/21 05:33 Estimated GFR > 60 ml/min 10/31/21 05:33 BUN/Creatinine Ratio 9 % 10/31/21 05:33 Glucose 96 mg/dL (75-100) 10/31/21 05:33 Hemoglobin A1c 5.0 % (4-6) 10/31/21 05:33 Calcium 9.3 mg/dL (8.4-10.2) 10/31/21 05:33 Phosphorus 3.50 mg/dL (2.5-4.5) 10/31/21 05:33 Magnesium 2.10 mg/dL (1.7-2.3) 10/31/21 05:33 Total Bilirubin 0.60 mg/dL (0.1-1.2) 10/30/21 05:36 AST 43 units/L (5-40) H 10/30/21 05:36 ALT 59 units/L (7-56) H 10/30/21 05:36 Alkaline Phosphatase 81 units/L (35-129) 10/30/21 05:36 Ammonia 40.0 umol/L (25-60) 10/30/21 06:51 Troponin T < 0.010 ng/mL (0.00-0.029) 10/30/21 06:51 NT-Pro-B Natriuret Pep 47.74 pg/mL (0-450) 10/30/21 06:51 Total Protein 8.1 g/dL (6.3-8.2) 10/30/21 05:36 Albumin 4.6 g/dL (3.9-5) 10/30/21 05:36 Albumin/Globulin Ratio 1.3 % 10/30/21 05:36 Lipase 24 units/L (13-60) 10/30/21 06:51 TSH 1.270 mlU/mL (0.270-4.200) 10/30/21 06:51 Urine Color [place] (Yellow) 10/30/21 10:21 Urine Turbidity Clear (Clear) 10/30/21 10:21 Urine pH 5.0 (5.0-7.0) 10/30/21 10:21 Ur Specific [place] 1.032 (1.003-1.030) H 10/30/21 10:21 Urine Protein 100 mg/dl mg/dL (Negative) 10/30/21 10:21 Urine Glucose (UA) Neg mg/dL (Negative) 10/30/21 10:21 Urine Ketones Tr mg/dL (Negative) 10/30/21 10:21 Urine Blood Neg (Negative) 10/30/21 10:21 Urine Nitrite Neg (Negative) 10/30/21 10:21 Urine Bilirubin Neg (Negative) 10/30/21 10:21 Urine Urobilinogen 2.0 mg/dL (<2.0) 10/30/21 10:21 Ur Leukocyte Esterase Neg (Negative) 10/30/21 10:21 Urine WBC (Auto) 5.0 /HPF (0.0-6.0) 10/30/21 10:21 Urine RBC (Auto) 1.0 /HPF (0.0-6.0) 10/30/21 10:21 U Epithel Cells (Auto) 1.0 /HPF (0-13.0) 10/30/21 10:21 Urine Mucus 3+ /HPF 10/30/21 10:21 Salicylates < 0.3 mg/dL (2.8-20.0) L 10/30/21 05:36 Urine Opiates Screen Negative 10/30/21 10:21 Urine Methadone Screen Negative 10/30/21 10:21 Acetaminophen 5.0 ug/mL (10.0-30.0) L 10/30/21 05:36 Ur Barbiturates Screen Negative 10/30/21 10:21 Ur Phencyclidine Scrn Negative 10/30/21 10:21 Ur Amphetamines Screen Positive 10/30/21 10:21 U Benzodiazepines Scrn Positive 10/30/21 10:21 Urine Cocaine Screen Negative 10/30/21 10:21 U Marijuana (THC) Screen Positive 10/30/21 10:21 Drugs of Abuse Note Disclamer 10/30/21 10:21 Plasma/Serum Alcohol < 0.01 % (0-0.07) 10/30/21 05:36 Coronavirus (PCR) Negative (Negative) 10/30/21 08:20 [place]/IV: Voiding Method Toilet Active Medications - Current Medications Current Medications: Generic Name Dose Route Start Last Admin Trade Name Freq PRN Reason Stop Dose Admin Acetaminophen 650 mg 10/30/21 11:00 10/31/21 21:39 Acetaminophen 325 Mg Tab PO 650 mg Q4H PRN Administration Pain MILD(1-3)/Fever >100.5/MERIDA Doxepin HCl 10 mg 10/30/21 22:00 11/02/21 22:16 Doxepin 10 Mg Cap PO 10 mg QHS AMBERLY Administration Fluoxetine HCl 20 mg 11/02/21 10:00 11/03/21 11:01 Fluoxetine 20 Mg Cap PO 20 mg QDAY AMBERLY Administration Lorazepam 2 mg 10/30/21 15:52 Lorazepam 2 Mg Tab PO Q1HR PRN CIWA-Ar 8-15 Lorazepam 4 mg 10/30/21 15:52 Lorazepam 2 Mg/Ml Vial IV Q1HR PRN CIWA-Ar 16-25 Lorazepam 4 mg 10/30/21 15:52 Lorazepam 2 Mg/Ml Vial IV Q15MIN PRN CIWA-Ar >25 Morphine Sulfate 2 mg 10/30/21 10:30 Morphine 2 Mg/1 Ml Inj IV Q4H PRN Pain, Moderate (4-6) Morphine Sulfate 4 mg 10/30/21 10:30 Morphine 4 Mg/1 Ml Inj IV Q4H PRN Pain , Severe (7-10) Naloxone HCl 0.1 mg 10/30/21 10:30 Naloxone 0.4 Mg/1 Ml Inj IV Q2MIN PRN Res Rate </= 8 or 02 SAT < 92% Ondansetron HCl 4 mg 10/30/21 10:30 Ondansetron 4 Mg/2 Ml Inj IV Q8H PRN Nausea And Vomiting Quetiapine Fumarate 50 mg 11/01/21 22:00 11/03/21 11:01 Quetiapine 25 Mg Tab PO 50 mg BID AMBERLY Administration Sodium Chloride 10 ml 10/30/21 22:00 11/03/21 11:02 Sodium Chloride 0.9% 10 Ml Flush Syringe IV 10 ml BID AMBERLY Administration Sodium Chloride 10 ml 10/30/21 10:30 Sodium Chloride 0.9% 10 Ml Flush Syringe IV PRN PRN LINE FLUSH
== END 2021-11-03 17:16 | disposition home or self-care (01) | DRG 917 ==
LOC: ED 05:21 → 4A 10:02 → 3A 10-31 23:44
PROVIDERS: ADMIT Student in an Organized Health Care Education/Training Program; ATTEND Student in an Organized Health Care Education/Training Program
DX: T50.902A Poisoning by unspecified drugs, medicaments and biological substances, intentional self-harm, initial encounter (principal); G92.8 Other toxic encephalopathy; R45.851 Suicidal ideations; Z20.822 Contact with and (suspected) exposure to COVID-19; J45.909 Unspecified asthma, uncomplicated; G43.909 Migraine, unspecified, not intractable, without status migrainosus; E86.0 Dehydration; Y92.89 Other specified places as the place of occurrence of the external cause; F31.9 Bipolar disorder, unspecified; E86.9 Volume depletion, unspecified; F10.20 Alcohol dependence, uncomplicated; Y90.9 Presence of alcohol in blood, level not specified; E66.9 Obesity, unspecified; Z68.35 Body mass index [BMI] 35.0-35.9, adult; Z71.3 Dietary counseling and surveillance
CPT/HCPCS: 36415; 70450; 71045; 80048; 80053; 80307; 80320; 81001; 82140; 82805; 83036; 83690; 83735; 83880; 84100; 84443; 84484; 85025; 85610; 85730; 93005; 93010; 99406; G0378; Q0162; G0480; J3480; J7030; U0003